=== PATIENT | male | born 1980 | race Caucasian/White ===

== ENCOUNTER 2016-05-16 02:46 | Inpatient (IN) | payer OTHER ==
[~2016-05-16] VITALS: Ht 180.3 cm; Wt 79.0 kg
[2016-05-16 03:28] LABS: BASOPHIL COUNT 0.1 K/uL (0-0.1); EOSINOPHIL (%) 0.1 % (0-5); IMMATURE GRANULOCYTE (%) 3.5 % (0.0-0.7); IMMATURE GRANULOCYTE COUNT 1.3 K/uL; INSTRUMENT ABS NEUTROPHIL CT 30.3 K/uL; LYMPHOCYTE COUNT 3.1 K/uL (1.0-2.8); MEAN PLAT.VOLUME 10.8 uM^3 (9.0-12.4); MONOCYTE (%) 7.6 % (3-12); MONOCYTE COUNT 2.9 K/uL (0-0.8); NEUTROPHIL (%) 80.2 % (45-76); NEUTROPHIL COUNT 30.3 K/uL (1.8-6.4); PLATELET COUNT 257 K/uL (156-360)
[2016-05-16 03:30] LABS: CARBON DIOXIDE (BICARBONATE) 22.4 MEQ/L (20-31)
[2016-05-16 03:42] LABS: CHLORIDE 105 mEq/L (99-109); POTASSIUM 5.2 mEq/L (3.7-5.4); SODIUM 147 mEq/L (136-147)
[2016-05-16 03:44] LABS: GLUCOSE 348 mg/dL (70-99)
[2016-05-16 03:45] LABS: ANION GAP 25 MEQ/L (2-14)
[2016-05-16 03:46] LABS: INTER. NORMALIZED RATIO 1.6; PROTHROMBIN TIME 16.1 (9.2-11.2); PTT 33.8 (25-32); TOTAL BILIRUBIN 0.2 mg/dL (0.0-1.0)
[2016-05-16 03:47] LABS: HEMATOCRIT 47.5 % (38.0-50.0); MCH 31.9 PG (29.0-34.0); MCHC 32.4 G/DL (30.0-36.0); MCV 98.3 FL (86-99); NRBC (%) 0.1 /100 WBC (0-0); RBC DIS.WIDTH-CV 14.2 % (11.8-14.6); RBC DIS.WIDTH-SD 52.1 % (39-53); RED BLOOD COUNT 4.83 M/uL (4.00-5.50)
[2016-05-16 03:47] LABS: SERUM ETHYL ALCOHOL < 10 mg/dL
[2016-05-16 03:48] LABS: ALKALINE PHOSPHATASE 69 IU/L (3-129); GFR ESTIMATE (CALCULATED) 35 mL/min/
[2016-05-16 03:49] LABS: WHITE BLOOD COUNT 38.5 K/uL (4.1-10.2)
[2016-05-16 03:50] LABS: UREA NITROGEN (BUN) 18 mg/dL (9-23)
[2016-05-16 03:51] LABS: SALICYLATE < 5.0 MG/DL (15-30)
[2016-05-16 04:08] LABS: TROP-I INTERPRETATION NEGATIVE; TROPONIN-I 0.09 ng/mL (0.0-0.30)
[2016-05-16 04:10] LABS: HEMOGLOBIN 8 (12.5-16.6); PCO2 29 mm Hg (35-45); PO2 279 mm Hg (80-100); pH 6.91 (7.35-7.45)
[2016-05-16 04:11] LABS: CARBOXY HGB 0.9 % (0-5); METHEMOGLOBIN 0.3 % (0-1.5); SITE aline
[2016-05-16 04:12] LABS: DEVICE 980; FI02 100 %; MECHANICAL RATE 22 resp/min; MODE ac; PEEP 18 CM/H20; TIDAL VOLUME 500 ML; TOTAL RESP RATE 22 resp/min
[2016-05-16 04:12] LABS: LIPASE 18 U/L (1.0-51.0)
[2016-05-16 04:29] LABS: ADD MIUA? YES; BILIRUBIN NEGATIVE; BLOOD MODERATE; COLOR YELLOW ((YELLOW)); GLUCOSE (STRIP) 50; KETONES NEGATIVE; LEUKOCYTES SMALL; NITRITE NEGATIVE; PROTEIN (STRIP) 100; SPECIFIC GRAVITY 1.009 (1.000-1.030); UROBILINOGEN 0.2 MG/DL (0.2-1.0)
[2016-05-16 04:39] LABS: BACTERIA RARE /HPF; EPITHELIAL CELLS RARE /HPF; MUCUS TRACE /LPF; UCUL ADDED? NO; WHITE BLOOD CELLS 30-40 /HPF (0-5)
[2016-05-16 04:41] LABS: ADD MEDTOX COMMENT Y; AMPHETAMINE NEGATIVE (500 ng/mL); BARBITURATES NEGATIVE (200 ng/mL); BENZODIAZEPINES NEGATIVE (150 ng/mL); COCAINE NEGATIVE (150 ng/mL); INTERNAL CONTROLS VALID? YES; METHADONE NEGATIVE (200 ng/mL); METHAMPHETAMINE NEGATIVE (500 ng/mL); OPIATES (MORPHINE) NEGATIVE (100 ng/mL); OXYCODONE NEGATIVE (100 ng/mL); PHENCYCLIDINE NEGATIVE (25 ng/mL); PROPOXYPHENE NEGATIVE (300 ng/mL); THC CANNABINOIDS PRESUMPTIVE POSITIVE (50 ng/mL); TRICYCLIC ANTIDEPRESSANTS NEGATIVE (300 ng/mL)
[2016-05-16 06:15] VITALS: BP 110/70
[2016-05-16 06:41] LABS: CARBOXY HGB 0.9 % (0-5); METHEMOGLOBIN 0.9 % (0-1.5)
[2016-05-16 06:42] LABS: COMMENTS - BLOOD GASES C+; DEVICE VENT; FI02 100 %; MECHANICAL RATE 22 resp/min; MODE AC; PCO2 65 mm Hg (35-45); PEEP 18 CM/H20; PO2 153 mm Hg (80-100); SITE A-LINE; TIDAL VOLUME 500 ML; TOTAL RESP RATE 22 resp/min
[2016-05-16 06:43] LABS: pH < 6.91 (7.35-7.45)
[2016-05-16 07:19] LABS: INTER. NORMALIZED RATIO 2.2; PROTHROMBIN TIME 22.7 (9.2-11.2)
[2016-05-16 07:25] LABS: PTT 128.6 (25-32)
[2016-05-16 07:46] LABS: METH RESISTANT S AUREUS PCR NEGATIVE (NEGATIVE); PROBE CHECK PASS; SPECIMEN PROCESSING CONTROL PASS
[2016-05-16 07:49] LABS: MCH 31.4 PG (29.0-34.0); MEAN PLAT.VOLUME 10.3 uM^3 (9.0-12.4); NRBC (%) 0.5 /100 WBC (0-0); RBC DIS.WIDTH-CV 14.4 % (11.8-14.6); RBC DIS.WIDTH-SD 51.8 % (39-53)
[2016-05-16 07:51] LABS: BASE EXCESS -11.6 mEq/L (-3 to +3); BICARBONATE 18.5 mEq/L (22-26); CARBOXY HGB 0.7 % (0-5); METHEMOGLOBIN 1.1 % (0-1.5); PCO2 64 mm Hg (35-45); PO2 153 mm Hg (80-100)
[2016-05-16 07:52] LABS: COMMENTS - BLOOD GASES +C; DEVICE PB980; FI02 90 %; MECHANICAL RATE 28 resp/min; MODE AC; PEEP 18 CM/H20; SITE LF A-LINE; TIDAL VOLUME 480 ML; TOTAL RESP RATE 28 resp/min
[2016-05-16 07:53] LABS: pH 7.07 (7.35-7.45)
[2016-05-16 08:24] LABS: PLATELET COUNT 79 K/uL (156-360); RED BLOOD COUNT 3.06 M/uL (4.00-5.50); WHITE BLOOD COUNT 5.5 K/uL (4.1-10.2)
[2016-05-16 08:36] LABS: BASE EXCESS -6.2 mEq/L (-3 to +3); BICARBONATE 23.6 mEq/L (22-26); METHEMOGLOBIN 1.2 % (0-1.5); PCO2 71 mm Hg (35-45); PO2 49 mm Hg (80-100)
[2016-05-16 08:38] LABS: COMMENTS - BLOOD GASES +C; DEVICE PB980; FI02 100 %; INSPIRATION TIME 0.7 seconds; MECHANICAL RATE 34 resp/min; MODE ACVC+; PEEP 18.8 CM/H20; SITE LF A-LINE; TIDAL VOLUME 450 ML; TOTAL RESP RATE 34 resp/min; pH 7.13 (7.35-7.45)
[2016-05-16 08:41] LABS: ALKALINE PHOSPHATASE 49 IU/L (3-129); ANION GAP 27 MEQ/L (2-14); CHLORIDE 114 MEQ/L (99-109); GFR ESTIMATE (CALCULATED) 33 mL/min/; MAGNESIUM 1.2 mg/dl (1.3-2.7); POTASSIUM 4.9 MEQ/L (3.7-5.4); SAMPLE HEMOLYSIS CHECK 0; SAMPLE ICTERIC CHECK 0; SAMPLE LIPEMIA CHECK 0; TOTAL BILIRUBIN 0.3 MG/DL (0.0-1.0); UREA NITROGEN (BUN) 18 mg/dL (9-23)
[2016-05-16 08:42] LABS: GLUCOSE 162 mg/dL (70-99)
[2016-05-16 08:43] LABS: SODIUM 165 MEQ/L (136-147)
[2016-05-16 09:10] LABS: POINT-OF-CARE METER ID UU13113803
[2016-05-16 09:13] LABS: GLUCOSE 166 mg/dL (70-99)
[2016-05-16 09:14] LABS: ANION GAP 31 MEQ/L (2-14)
[2016-05-16 09:17] LABS: GFR ESTIMATE (CALCULATED) 33 mL/min/
[2016-05-16 09:18] LABS: UREA NITROGEN (BUN) 19 mg/dL (9-23)
[2016-05-16 09:19] LABS: EOSINOPHIL (%) 0.7 % (0-5); IMMATURE GRANULOCYTE (%) 3.6 % (0.0-0.7); IMMATURE GRANULOCYTE COUNT 0.2 K/uL; INSTRUMENT ABS NEUTROPHIL CT 3.2 K/uL; LYMPHOCYTE COUNT 1.8 K/uL (1.0-2.8); MONOCYTE (%) 4.5 % (3-12); MONOCYTE COUNT 0.3 K/uL (0-0.8); NEUTROPHIL (%) 58.6 % (45-76); NEUTROPHIL COUNT 3.2 K/uL (1.8-6.4)
[2016-05-16 09:22] LABS: CHLORIDE 116 mEq/L (99-109); POTASSIUM 3.1 mEq/L (3.7-5.4); SODIUM 165 mEq/L (136-147)
[2016-05-16 10:24] LABS: BASE EXCESS -11.9 mEq/L (-3 to +3); CARBOXY HGB 1.2 % (0-5); METHEMOGLOBIN 1.1 % (0-1.5); PCO2 67 mm Hg (35-45)
[2016-05-16 10:25] LABS: PO2 63 mm Hg (80-100); pH 7.06 (7.35-7.45)
[2016-05-16 10:26] LABS: COMMENTS - BLOOD GASES +C; DEVICE PB980; FI02 100 %; MECHANICAL RATE 20 resp/min; MODE BILEVEL; PRESSURE CONTROL VENTILATION 30 CM H20; SITE LF A LINE; TOTAL RESP RATE 20 resp/min
[2016-05-16 10:27] LABS: PEEP 5 CM/H20; PRES. SUPPORT 30 CM/H2O
== END 2016-05-16 15:32 | DRG 917 ==
LOC: EME 02:46 → EDBD 02:46 → EME 04:27 → CATH 04:27 → 2SOUTH 05:45 → 4WEST 06:12
PROVIDERS: Emergency Medicine; Internal Medicine; Internal Medicine Nephrology
PROC: 0BH17EZ Insertion of Endotracheal Airway into Trachea, Via Natural or Artificial Opening (ICD-10-PCS; principal; 2016-05-16)
PROC: 5A1935Z Respiratory Ventilation, Less than 24 Consecutive Hours (ICD-10-PCS; principal; 2016-05-16)
PROC: 4A133B1 Monitoring of Arterial Pressure, Peripheral, Percutaneous Approach (ICD-10-PCS; 2016-05-16)
PROC: 04HY32Z Insertion of Monitoring Device into Lower Artery, Percutaneous Approach (ICD-10-PCS; 2016-05-16)
PROC: 06HM33Z Insertion of Infusion Device into Right Femoral Vein, Percutaneous Approach (ICD-10-PCS; 2016-05-16)
PROC: 5A12012 Performance of Cardiac Output, Single, Manual (ICD-10-PCS; 2016-05-16)
PROC: 5A2204Z Restoration of Cardiac Rhythm, Single (ICD-10-PCS; 2016-05-16)
PROC: 4A023N7 Measurement of Cardiac Sampling and Pressure, Left Heart, Percutaneous Approach (ICD-10-PCS; 2016-05-16)
PROC: B2111ZZ Fluoroscopy of Multiple Coronary Arteries using Low Osmolar Contrast (ICD-10-PCS; 2016-05-16)
PROC: B2151ZZ Fluoroscopy of Left Heart using Low Osmolar Contrast (ICD-10-PCS; 2016-05-16)
PROC: 5A1D00Z (ICD-10-PCS; 2016-05-16)
PROC: 05HM33Z Insertion of Infusion Device into Right Internal Jugular Vein, Percutaneous Approach (ICD-10-PCS; 2016-05-16)
PROC: 5A12012 Performance of Cardiac Output, Single, Manual (ICD-10-PCS; 2016-05-16)
PROC: 5A2204Z Restoration of Cardiac Rhythm, Single (ICD-10-PCS; 2016-05-16)
DX: T65.92XA Toxic effect of unspecified substance, intentional self-harm, initial encounter (principal); J96.00 Acute respiratory failure, unspecified whether with hypoxia or hypercapnia; R40.20 Unspecified coma; E87.2 Acidosis; N17.9 Acute kidney failure, unspecified; T59.92XA Toxic effect of unspecified gases, fumes and vapors, intentional self-harm, initial encounter; R57.0 Cardiogenic shock
CPT/HCPCS: 36600; 70450; 71010; 80048 91; 80053; 80069; 81003; 82330; 82550; 82550 91; 82553; 82803; 82948; 83605; 83690; 83735; 83930; 84100; 84484; 84999; 85025; 85025 91; 85347; 85610; 85730; 87040; 87070; 87077; 87086; 87186; 87205; 87641; 87801; 93005; 94002; 99281; 99285; C1752; C1769; C1887; C1894; G0480; J0171; J0282; J0461; J0610; J1250; J1451; J1644; J1815; J7030; J7050; J7070